=== PATIENT | male | born 1985 | race Caucasian/White ===

== ENCOUNTER 2017-03-18 11:09 | Emergency (ER) | payer MEDICAID ==
[~2017-03-18] VITALS: Ht 182.9 cm; Wt 116.2 kg
[2017-03-18] MEDS ORDERED: ONDANSETRON 2MG/ML, 2ML ONE (12:25)
[2017-03-18] MEDS ORDERED: SODIUM CHLORIDE 0.9% 1,000ML IVBOLUS ONE (12:30)
[2017-03-18] MEDS ORDERED: ONDANSETRON 2MG/ML, 2ML IVPush ONE (12:30)
[2017-03-18 13:45] LABS: DAU SCREEN DISCLAIMER
[2017-03-18] MEDS ORDERED: LORazepam 2 MG/ML, 1ML ONE (14:11)
[2017-03-18] MEDS ORDERED: OXYcodone/APAP 5/325MG TABLET ONE (14:15)
[2017-03-18] MEDS ORDERED: LORazepam 2 MG/ML, 1ML IVPush ONE (14:30)
[2017-03-18] MEDS ORDERED: OXYcodone/APAP 5/325MG TABLET PO ONE (14:30)
[2017-03-18 14:56] VITALS: BP 135/75
== END 2017-03-18 14:59 | disposition home or self-care (01) ==
LOC: ED 14:30
DX: F12.10 Cannabis abuse, uncomplicated (principal); F11.10 Opioid abuse, uncomplicated
CPT/HCPCS: 80307; 96361; 96374; 96375; 99285; J2060; J2405; J7030

== ENCOUNTER 2017-03-26 16:20 | Emergency (ER) | payer MEDICAID ==
[~2017-03-26] VITALS: Ht 182.9 cm; Wt 113.6 kg
[2017-03-26 16:39] VITALS: BP 145/66
[2017-03-26] MEDS ORDERED: KETOROLAC 30 MG/1 ML IM ONE (17:00)
[2017-03-26] MEDS ORDERED: OXYcodone/APAP 5/325MG TABLET PO ONE (17:00)
[2017-03-26] MEDS ORDERED: OXYcodone/APAP 5/325MG TABLET ONE (17:05)
[2017-03-26] MEDS ORDERED: KETOROLAC 30 MG/1 ML ONE (17:05)
== END 2017-03-26 17:51 | disposition home or self-care (01) ==
LOC: ED 17:45
DX: S16.1XXA Strain of muscle, fascia and tendon at neck level, initial encounter (principal); S90.822A Blister (nonthermal), left foot, initial encounter; G89.29 Other chronic pain; Z59.0 Homelessness; X58.XXXA Exposure to other specified factors, initial encounter; Y93.89 Activity, other specified; Y99.9 Unspecified external cause status; Y92.89 Other specified places as the place of occurrence of the external cause
CPT/HCPCS: 96372; 99283; J1885

== ENCOUNTER 2019-04-13 14:33 | Emergency (ER) | payer MEDICAID ==
[~2019-04-13] VITALS: Ht 182.9 cm; Wt 78.0 kg
[2019-04-13 14:35] VITALS: BP 143/67
== END 2019-04-13 15:53 | disposition home or self-care (01) ==
LOC: ED 15:40
DX: M54.5 Low back pain (principal); F17.200 Nicotine dependence, unspecified, uncomplicated
CPT/HCPCS: 96372; 99283; J1885